=== PATIENT | female | born 1980 | race Two or more races ===

== ENCOUNTER 2025-06-10 01:21 | Emergency (ER) | payer MEDICAID ==
[~2025-06-10] VITALS: Ht 149.9 cm; Wt 70.8 kg
[2025-06-10 02:09] VITALS: BP 127/98; PULSE 86; RESP 20; TEMP 98.6; O2SAT 98
[2025-06-10] MEDS: ACETAMINOPHEN 325 MG TAB PO ONE (02:16)
[2025-06-10] MEDS ORDERED: ACET500T58 PO (02:19)
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
--- NOTE | 2025-06-10 03:57 | DVH ---
INDICATION: lower lumbar back pain COMPARISON: None TECHNIQUE: 2 views of the lumbar spine were obtained. FINDINGS: The lumbar vertebral alignment is normal. The intervertebral disc spaces are well-maintained. No significant facet arthropathy is noted. No acute fracture, vertebral compression deformity or aggressive osseous lesions. The paravertebral soft tissues are grossly unremarkable. IMPRESSION: 1. No acute fracture.
--- NOTE | 2025-06-10 03:58 | DVH ---
CLINICAL INDICATION: left femur pain TECHNIQUE: XY L FEMUR XRAY Comparison: None FINDINGS/IMPRESSION: : There is no evidence of acute fracture or dislocation. Soft tissues are unremarkable.
[2025-06-10] MEDS ORDERED: CYCL-837 PO (04:06)
== END 2025-06-10 04:14 | disposition home or self-care (01) ==
LOC: ER 01:21
DX: S39.012A Strain of muscle, fascia and tendon of lower back, initial encounter (principal); S70.12XA Contusion of left thigh, initial encounter; Z79.899 Other long term (current) drug therapy; V49.9XXA Car occupant (driver) (passenger) injured in unspecified traffic accident, initial encounter; Y93.89 Activity, other specified; Y92.488 Other paved roadways as the place of occurrence of the external cause; Y99.8 Other external cause status
CPT/HCPCS: 72100; 81025